=== PATIENT | female | born 1945 | race Caucasian/White ===

== ENCOUNTER 2019-03-27 10:13 | Observation (INO) ==
[2019-03-27 11:09] LABS: Hematocrit 22.8 % (35.3-44.9); Mean Corpuscular HGB Conc 30.7 g/dL (31.6-35.5); Mean Corpuscular Hemoglobin 28.5 pg (28.0-33.3); Mean Corpuscular Volume 92.7 fL (83.0-100.0); Mean Platelet Volume 8.8 fL (9.4-12.4); Platelet Count 532 K/mcL (140-400); Red Blood Count 2.46 M/mcL (3.82-4.97); Red Cell Distribution Width 15.3 % (11.5-14.5)
--- NOTE | 2019-03-27 11:21 | Emergency Department Note ---
Disposition Clinical Impression: Anemia requiring transfusions Disposition: Admitted As Inpatient Condition: Fair Referrals: Gema Guajardo, ZAIRA [Primary Care Provider] - Forms: ED Satisfaction Letter Time of Disposition: 14:49 General Adult HPI - General Chief complaint: ED GI Bleed Stated complaint: GI bleed Time Seen by Provider: 03/27/19 10:21 Nursing Notes Reviewed: Yes Vital Signs Reviewed: Yes - History of Present Illness HPI Narrative: Presents with anemia was sent for consideration of blood transfusion and a did review her records and yesterday had a hemoglobin of 7.4 and the patient is taki ng Plavix secondary to what she states is a carotid stent which was placed in the spring and she is also taking prednisone is now down to 15 mg a day and this is for giant cell arteritis and has had some dark stools but no blood seen in the stool. No nausea vomiting. Does have a full sensation but no specific abdominal pain. Social history: Stopped smoking 2 months ago. No alcohol Pain Scale: 1 - Related Data Home Medications Medication Instructions Recorded Confirmed Alendronate Sodium 70 mg PO MO 03/27/19 03/27/19 Aspirin [Adult Aspirin Regimen] 81 mg PO DAILY 03/27/19 03/27/19 Cetirizine HCl [24Hour Allergy] 10 mg PO DAILY PRN 03/27/19 03/27/19 Clopidogrel [Plavix] 75 mg PO DAILY 03/27/19 03/27/19 Multivit-Min/Iron/Folic/Lutein 1 tab PO DAILY 03/27/19 03/27/19 [Multivitamin Women 50 Plus Tab] Pantoprazole Sodium [Protonix] 40 mg PO DAILY 03/27/19 03/27/19 predniSONE [PredniSONE] 15 mg PO DAILY 03/27/19 03/27/19 Allergies Allergy/AdvReac Type Severity Reaction Status Date / Time acetaminophen [From Percocet] Allergy NAUSEA, Verified 03/27/19 13:35 BAD HEADACHE codeine Allergy NAUSEA, Verified 03/27/19 13:35 BAD HEADACHE oxycodone [From Percocet] Allergy NAUSEA, Verified 03/27/19 13:35 BAD HEADACHE Sulfa (Sulfonamide Allergy See Verified 03/27/19 13:35 Antibiotics) Comments All systems ED: reviewed and negative except as stated. Past Medical History - Past Medical History Medical history: Reports: no medical history Surgical history: Reports: other Psychiatric history: Reports: no psych history - Social History Smoking Status: Never smoker Smokeless Tobacco Status: No Alcohol use: Reports: none Drug use: Reports: none Physical Exam CONSTITUTIONAL: Alert and oriented X3, well-nourished, well appearing, in no apparent distress HEAD: Normocephalic; atraumatic. EYES: PERRL, no scleral icterus. NOSE: The nose is normal in appearance without rhinorrhea RESP: Normal chest excursion with respiration; breath sounds clear and equal bilaterally; no wheezes, rhonchi, or rales CARD: Regular rhythm, without murmurs, rub or gallop ABD: Non-distended; non-tender, soft,without rigidity, rebound or guarding SKIN: Normal for age and race; warm and dry; no apparent lesions Course Vital Signs Temperature 98.1 F 03/27/19 10:15 Pulse Rate 85 03/27/19 10:15 Respiratory Rate 14 03/27/19 10:15 Blood Pressure 166/76 03/27/19 10:15 O2 Sat by Pulse Oximetry 97 03/27/19 10:15 Temperature 98.4 F 03/27/19 14:30 Pulse Rate 72 03/27/19 14:30 Respiratory Rate 16 03/27/19 14:30 Blood Pressure 117/55 03/27/19 14:30 O2 Sat by Pulse Oximetry 99 03/27/19 14:30 Oxygen Delivery Oxygen Delivery Room Air Medical Decision Making - MDM Narrative Medical decision making narrative: rectal exam will be don for further evaluation. She is scheduled for endoscopy and colonoscopy with Dr. Hauser on Saturday, in 3 days. 1121 I did I did review the test results. I spoke with the hospitalist to ask for a CT scan and basic metabolic profile which have been done and I have reviewed the results which are both negative the patient will be admitted at this time. She is in the process of getting 2 units of packed red blood cells/blood is ordered. 1448 I also spoke earlier with Dr. Hauser who said that the patient actually has an appointment for evaluation on Saturday as opposed to having an appointment to actually have the EGD and colonoscopy performed on Saturday. He does not know this patient. I did turn in for a consult to him and he is in agreement and accepts. 1449 I did see the patient again is spoke with her and her son and she is currently being transfused and did inform them of the test results. 1530 - Medical Records Medical records reviewed: Yes I reviewed the patient's medical records. - Lab Data Lab results reviewed: Yes I reviewed the patient's lab results. Result diagrams: 03/27/19 10:54 03/27/19 10:54 Lab Results 03/27/19 03/27/19 03/27/19 Range/Units 10:54 10:54 10:54 WBC 6.6 (4.3-11.1) K/mcL RBC 2.46 L (3.82-4.97) M/mcL Hgb 7.0 L (11.5-15.4) g/dL Hct 22.8 L (35.3-44.9) % MCV 92.7 (83.0-100.0) fL MCH 28.5 (28.0-33.3) pg MCHC 30.7 L (31.6-35.5) g/dL RDW 15.3 H (11.5-14.5) % Plt Count 532 H (140-400) K/mcL MPV 8.8 L (9.4-12.4) fL Sodium 138 (136-145) mEq/L Potassium 3.5 (3.5-5.1) mEq/L Chloride 104 (98-107) mEq/L Carbon Dioxide 27 (23-29) mEq/L BUN 15 (8-23) mg/dL Creatinine 0.72 (0.60-1.20) mg/dL Est GFR ( Amer) > 60 (> 60) Est GFR (Non-Af Amer) > 60 (> 60) BUN/Creatinine Ratio 21 (6-26) Glucose 109 H (70-105) mg/dL Calculated Osmolality 287 (280-300) Calcium 9.2 (8.6-10.3) mg/dL Blood Type O POSITIVE Antibody Screen NEGATIVE Crossmatch See Detail - Radiology Data Radiology results reviewed: Yes I reviewed the patient's radiology results.
[2019-03-27 13:40] LABS: BUN/Creatinine Ratio 21 (6-26); Blood Urea Nitrogen 15 mg/dL (8-23); Calcium 9.2 mg/dL (8.6-10.3); Carbon Dioxide 27 mEq/L (23-29); Chloride 104 mEq/L (98-107); Glucose 109 mg/dL (70-105); Osmolality,Calculated 287 (280-300); Potassium 3.5 mEq/L (3.5-5.1); Sodium 138 mEq/L (136-145); eGFR For Non-African Americans > 60 (> 60)
--- NOTE | 2019-03-27 13:47 | AcuteCare Surgery Consult Note ---
<Angeles Butler N - Last Filed: 03/27/19 13:45> Date of Encounter: 03/27/19 Time of Encounter: 13:45 Assessment and Plan (1) Anemia Current Visit: Yes Status: Acute -73-year-old female with progressively worsening normocytic anemia since January 10 -During workup for her GCA, an ICA aneurysm was identified and patient underwent stent placement in January 2019 and started on aspirin and Plavix -Reports recent history of darker stools, but denies hematochezia, bright red blood per rectum, hematemesis, or abnormal uterine bleeding -Asymptomatic and hemodynamically stable, hemoglobin in the emergency department today was 7.0 -Concern for gastritis with bleeding ulcer due to history of prednisone and antiplatelet use -Patient will be transfused 2 units packed RBCs today -Plan to initiate bowel prep tomorrow in anticipation for EGD and colonoscopy the following day -Clear liquid diet for now, no red or purple dye Qualifiers: Qualified Code(s): D64.9 - Anemia, unspecified History of Present Illness Consult date: 03/27/19 History of present illness: Patient is a 73-year-old female with a past medical history of 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 Patient underwent right temporal artery biopsy on 12/18/18 with pathology findings supporting giant cell arteritis. At that time she was also diagnosed with a left ICA aneurysm measu ring 7 x 4 x 4 mm for which she underwent stenting at [facility] and was started on aspirin and Plavix. Patient was incidentally found to have progressively worsening normocytic anemia on outpatient follow-up labs. Yesterday her hemoglobin was found to be 7.4 which prompted her PCP to advise her to visit the emergency department today. Upon arrival, patient is hemodynamically stable and in no acute distress. Patient denies any symptoms from her anemia. She denies any abdominal pain, bright red blood per rectum, or hematemesis, but she does report darker stools recently. Past Med Surg Social Fam HX - Past Medical History Medical history: no medical history Psychiatric history: no psych history - Past Surgical History Surgical History: other Additional surgical history: D&C, T&A, - Social History Smoking Status: Never smoker Smokeless Tobacco Status: No Alcohol use: none Drug use: none Medications and Allergies Alendronate Sodium 70 mg PO MO 05/17/19 [History] Aspirin [Adult Aspirin Regimen] 81 mg PO DAILY 03/27/19 [History] Cetirizine HCl [24Hour Allergy] 10 mg PO DAILY PRN 03/27/19 [History] Clopidogrel [Plavix] 75 mg PO DAILY 03/27/19 [History] Multivit-Min/Iron/Folic/Lutein [Multivitamin Women 50 Plus Tab] 1 tab PO DAILY 03/27/19 [History] Pantoprazole Sodium [Protonix] 40 mg PO DAILY 03/27/19 [History] predniSONE [PredniSONE] 15 mg PO DAILY 03/27/19 [History] Allergy/AdvReac Type Severity Reaction Status Date / Time acetaminophen [From Percocet] Allergy NAUSEA, Verified 03/27/19 13:35 BAD HEADACHE codeine Allergy NAUSEA, Verified 03/27/19 13:35 BAD HEADACHE oxycodone [From Percocet] Allergy NAUSEA, Verified 03/27/19 13:35 BAD HEADACHE Sulfa (Sulfonamide Allergy See Verified 03/27/19 13:35 Antibiotics) Comments Review of Systems All systems PM: The remainder of the systems were reviewed and are negative - Constitutional no chills, no fever(s) - Cardiovascular no chest pain - Respiratory no dyspnea - Gastrointestinal abdominal pain (Occasional postprandial epigastric pain), no hematochezia, no nausea, no vomiting - Genitourinary Genitourinary: no abnormal vaginal bleeding General Surgery Exam Initial Vital Signs Temp Pulse Resp BP Pulse Ox 98.1 F 85 14 166/76 97 03/27/19 10:15 03/27/19 10:15 03/27/19 10:15 03/27/19 10:15 03/27/19 10:15 - General physical appearance well developed, well nourished - Eyes PERRL, normal ocular movement - ENT normal pinna, normal nares - Neck trachea midline, no venous distension - Respiratory normal expansion, normal respiratory effort, clear to auscultation - Cardiovascular Cardiovascular exam: Present: RRR. Absent: murmurs - Abdomen Abdomen general surgery: Present: bowel sounds present, soft, non tender - Integumentary Integumentary general surgery: Present: warm and dry - Musculoskeletal Present: normal posture - Psychiatric Psychiatric general surgery: Present: A&Ox3 Exam Initial Vital Signs Temp Pulse Resp BP Pulse Ox 98.1 F 85 14 166/76 97 03/27/19 10:15 03/27/19 10:15 03/27/19 10:15 03/27/19 10:15 03/27/19 10:15 Results - Labs 03/27/19 10:54 03/27/19 10:54 Abnormal lab results RBC 2.46 M/mcL (3.82-4.97) L 03/27/19 10:54 Hgb 7.0 g/dL (11.5-15.4) L 03/27/19 10:54 Hct 22.8 % (35.3-44.9) L 03/27/19 10:54 MCHC 30.7 g/dL (31.6-35.5) L 03/27/19 10:54 RDW 15.3 % (11.5-14.5) H 03/27/19 10:54 Plt Count 532 K/mcL (140-400) H 03/27/19 10:54 MPV 8.8 fL (9.4-12.4) L 03/27/19 10:54 Glucose 109 mg/dL (70-105) H 03/27/19 10:54 Crossmatch See Detail 03/27/19 10:54 Diabetes panel 03/27/19 Range/Units 10:54 Sodium 138 (136-145) mEq/L Potassium 3.5 (3.5-5.1) mEq/L Chloride 104 (98-107) mEq/L Carbon Dioxide 27 (23-29) mEq/L BUN 15 (8-23) mg/dL Creatinine 0.72 (0.60-1.20) mg/dL Glucose 109 H (70-105) mg/dL Calcium 9.2 (8.6-10.3) mg/dL Calcium panel 03/27/19 Range/Units 10:54 Calcium 9.2 (8.6-10.3) mg/dL Pituitary panel 03/27/19 Range/Units 10:54 Sodium 138 (136-145) mEq/L Potassium 3.5 (3.5-5.1) mEq/L Chloride 104 (98-107) mEq/L Carbon Dioxide 27 (23-29) mEq/L BUN 15 (8-23) mg/dL Creatinine 0.72 (0.60-1.20) mg/dL Glucose 109 H (70-105) mg/dL Calcium 9.2 (8.6-10.3) mg/dL Adrenal panel 03/27/19 Range/Units 10:54 Sodium 138 (136-145) mEq/L Potassium 3.5 (3.5-5.1) mEq/L Chloride 104 (98-107) mEq/L Carbon Dioxide 27 (23-29) mEq/L BUN 15 (8-23) mg/dL Creatinine 0.72 (0.60-1.20) mg/dL Glucose 109 H (70-105) mg/dL Calcium 9.2 (8.6-10.3) mg/dL All other labs normal. Consult Discharge Plan - Plan <Ismael Hauser - Last Filed: 03/27/19 17:57> Date of Encounter: 03/27/19 Review of Systems All systems PM: The remainder of the systems were reviewed and are negative General Surgery Exam Initial Vital Signs Temp Pulse Resp BP Pulse Ox 98.1 F 85 14 166/76 97 03/27/19 10:15 03/27/19 10:15 03/27/19 10:15 03/27/19 10:15 03/27/19 10:15 Exam Initial Vital Signs Temp Pulse Resp BP Pulse Ox 98.1 F 85 14 166/76 97 03/27/19 10:15 03/27/19 10:15 03/27/19 10:15 03/27/19 10:15 03/27/19 10:15 Results - Labs 03/27/19 10:54 03/27/19 10:54 Abnormal lab results RBC 2.46 M/mcL (3.82-4.97) L 03/27/19 10:54 Hgb 7.0 g/dL (11.5-15.4) L 03/27/19 10:54 Hct 22.8 % (35.3-44.9) L 03/27/19 10:54 MCHC 30.7 g/dL (31.6-35.5) L 03/27/19 10:54 RDW 15.3 % (11.5-14.5) H 03/27/19 10:54 Plt Count 532 K/mcL (140-400) H 03/27/19 10:54 MPV 8.8 fL (9.4-12.4) L 03/27/19 10:54 Glucose 109 mg/dL (70-105) H 03/27/19 10:54 Crossmatch See Detail 03/27/19 10:54 Diabetes panel 03/27/19 Range/Units 10:54 Sodium 138 (136-145) mEq/L Potassium 3.5 (3.5-5.1) mEq/L Chloride 104 (98-107) mEq/L Carbon Dioxide 27 (23-29) mEq/L BUN 15 (8-23) mg/dL Creatinine 0.72 (0.60-1.20) mg/dL Glucose 109 H (70-105) mg/dL Calcium 9.2 (8.6-10.3) mg/dL Calcium panel 03/27/19 Range/Units 10:54 Calcium 9.2 (8.6-10.3) mg/dL Pituitary panel 03/27/19 Range/Units 10:54 Sodium 138 (136-145) mEq/L Potassium 3.5 (3.5-5.1) mEq/L Chloride 104 (98-107) mEq/L Carbon Dioxide 27 (23-29) mEq/L BUN 15 (8-23) mg/dL Creatinine 0.72 (0.60-1.20) mg/dL Glucose 109 H (70-105) mg/dL Calcium 9.2 (8.6-10.3) mg/dL Adrenal panel 03/27/19 Range/Units 10:54 Sodium 138 (136-145) mEq/L Potassium 3.5 (3.5-5.1) mEq/L Chloride 104 (98-107) mEq/L Carbon Dioxide 27 (23-29) mEq/L BUN 15 (8-23) mg/dL Creatinine 0.72 (0.60-1.20) mg/dL Glucose 109 H (70-105) mg/dL Calcium 9.2 (8.6-10.3) mg/dL All other labs normal. - Attending Attestation I examined this patient and my medical decision-making was reviewed with the Resident Physician. I agree with the documented findings, disposition and treatment plan as described except to the extent set forth below. I reviewed the above assessment and evaluation with the resident and agree with the above plan. Patient with noted trending downward millimeters. She denies any abdominal pain and denies any nausea or vomiting. She did describe having some dark stools but no visualized blood in the stool. She is never had a colonoscopy. She is nontender to palpation on physical examination with positive bowel sounds. Her laboratory studies show a hemoglobin of 7.0 and also previous labs have shown low iron level. Given her iron deficiency anemia of unknown origin I do agree that an EGD and colonoscopy would be warranted, however, I would first want her to be transfused so that she can be more normovolemic prior to administering a bowel prep that would cause possible dehydration. Will follow along and see what her lab values are tomorrow prior to starting the bowel prep
[2019-03-27] MEDS ORDERED: 0.9 % Sodium Chloride 250 ML ONE ×2 (14:09→19:58)
--- NOTE | 2019-03-27 16:32 | Event Note ---
Date of Encounter: 03/27/19 Time of Encounter: 17:00 to serve as attending attestation pending completion of resident H&P document I examined this patient and my medical decision-making was reviewed with the Resident Physician Dr Luis. I agree with the documented findings, disposition and treatment plan as described except to the extent set forth below. Ms Baca is being observed for worsening chronic anemia present since january and requiring prbc transfusion. She has pmhx GCA, ICA aneurysm with stent placementMar2018 at [facility] on ASA + palvix, since january 2019 she has had anemia worsened to now hgb 7 (12 in december 2018). She was scheduled to see Dr Hauser outpt next week for scopes. Outpt hgb 7.4 yesterday and PCP referred to ER. no other medical hx surg hx: reviewed and non contributory, recent ICA stent as noted above, temporal artery bx 12/2018 fam hx: reviewed and NON CONTRIBUTORY social hx: non smoker, no etoh or drugs awake, very pleasant. no abd pain. vague aching pain in epigastrium earlier in week. no n/v/d. no melena or brbpr or hematochezia, though stool appears darker. no hemorrhoids. She admits to weeks of lightheadedness and general fatigue which has been worked up outpt by her established providers without identifiable cause other than her being on steroids and having anemia. No vaginal bleeding, hematuria, wounds, + nosebleed once a month ago. No easy bruising. cv-no cp, palpitations, syncope, orthopnea, le edema pulm-no sob, wheezing, cough, hemoptysis, pnd neuro-no focal weakness, numbness, tingling, vision changes, coto skin-no rash, bruising, color changes gen- alert, awake,appears stated age eyes- pupils equal round , no conjunctival pallor cv- reg rate and rhythm, normal s1,s2, no murmurs appreciated lungs- ctabl, no wheezing, rhonchi or crackles abd- soft, non tender, non distended, + bs neuro- AAOx3, CN grossly intact skin- warm dry no pallor Normocytic acute on chronic anemia Suspected GI blood loss anemia hgb 7, hemodynamically stable -surgery has seen in consultation and chano do egd and cscope 03/29, clear liquids, being bowel prep tomorrow -2 units prbcs and trend hgb - asa + plavix are to be continued at this time- I have discussed with vasc surg here (whom did not treat pt) for guideline recs regarding recently aneurysmal stent placement and typically this medication regimen should be continued unless absolutely critical not to -she is unsure of [facility] vas surgeons name -IV PPI BID Giant Cell arteritis on daily prednisone- cont prednisone 15 mg daily vte ppx scds only further diagnoses and plan as noted by resident
[2019-03-27] MEDS ORDERED: Naloxone 0.4 MG/ML INJ IVP PRN (16:39)
[2019-03-27] MEDS ORDERED: Loratadine 10 MG TABLET PO PRN (16:41)
--- NOTE | 2019-03-27 16:46 | Internal Med History&Physical ---
<Jaden Luis - Last Filed: 03/27/19 16:48> Date of Encounter: 03/27/19 Time of Encounter: 16:44 Internal Medicine - H&P: HPI Chief complaint: Anemia Admitted From: Home History of present illness: Ms. 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 Patient had undergone a right temporal artery biopsy on 12/18 with findings suggestive of GCA. She was also diagnosed with a left-sided ICA aneurysm and underwent stenting at [facility]. She was started on aspirin and Plavix. On outpatient follow- up labs, she was incidentally found to have a progressively worsening normocytic anemia. Yesterday, hemoglobin was 7.4. PCP advised patient to present to the emergency department. Patient was initially supposed to establish with surgery on Saturday. On arrival to the emergency department, patients vital signs were as follows: Temperature 98.1, pulse 85, respiratory rate 14, blood pressure 166/76, O2 saturation 97%. Laboratory analysis demonstrated the following: Hemoglobin 7.0, MCV 92.7, and glucose 109. Surgery was consulted; plan is to initiate bowel prep tomorrow in anticipation for an EGD and colonoscopy on Saturday. Patient is placed on a clear liquid diet. She was seen and examined at bedside. She is currently receiving 1 unit of packed red blood cells. She states that she is feeling well, and has been completely asymptomatic. She endorses mild, intermittent abdominal discomfort over the past week. Also reports that her stools have appeared slightly darker in color over the past few days, but denies black stools. Patient does take aspirin and Plavix, and she states that she has been on her medications faithfully. She states that she was also told that she cannot stop her Plavix under any circumstance until her course is complete. She currently denies constipation, diarrhea, blood per rectum, hematemesis, abdominal pain, chest pain, fever, chills, nausea, or vomiting. No complaints at this time. Past Med Surg Social Fam HX - Past Medical History Medical history: no medical history Psychiatric history: no psych history - Past Surgical History Surgical History: other Additional surgical history: D&C, T&A, - Social History Smoking Status: Never smoker Smokeless Tobacco Status: No Alcohol use: none Drug use: none Internal Medicine - H&P: Meds Alendronate Sodium 70 mg PO MO 03/27/19 [History] Aspirin [Adult Aspirin Regimen] 81 mg PO DAILY 03/27/19 [History] Cetirizine HCl [24Hour Allergy] 10 mg PO DAILY PRN 03/27/19 [History] Clopidogrel [Plavix] 75 mg PO DAILY 03/27/19 [History] Multivit-Min/Iron/Folic/Lutein [Multivitamin Women 50 Plus Tab] 1 tab PO DAILY 03/27/19 [History] Pantoprazole Sodium [Protonix] 40 mg PO DAILY 03/27/19 [History] predniSONE [PredniSONE] 15 mg PO DAILY 03/27/19 [History] Allergy/AdvReac Type Severity Reaction Status Date / Time acetaminophen [From Percocet] Allergy NAUSEA, Verified 03/27/19 13:35 BAD HEADACHE codeine Allergy NAUSEA, Verified 03/27/19 13:35 BAD HEADACHE oxycodone [From Percocet] Allergy NAUSEA, Verified 03/27/19 13:35 BAD HEADACHE Sulfa (Sulfonamide Allergy See Verified 03/27/19 13:35 Antibiotics) Comments All Systems PM: A 10-system review of systems was performed and is negative for pertinent findings except as documented above in the HPI. - Constitutional Constitutional: no chills, no fever(s), no night sweats - Cardiovascular Cardiovascular ROS IM: no chest pain, no diaphoresis, no dyspnea, no lightheadedness, no palpitations, no syncope - Respiratory Respiratory: no cough, no dyspnea, no wheezing, no excessive phlegm production - Gastrointestinal Gastrointestinal: no abdominal pain, no diarrhea, no hematemesis, no hematochezia, no melena, no nausea, no vomiting - Genitourinary Genitourinary: no dysuria, no flank pain, no hematuria - Constitutional Vitals: Temp Pulse Resp BP Pulse Ox 98.0 F 74 17 145/68 100 03/27/19 16:41 03/27/19 16:41 03/27/19 16:41 03/27/19 16:41 03/27/19 16:41 Exam: General: A&O X3, conversant, no acute distress Head: atraumatic, normocephalic Eye: PERRL, EOMI, conjuntiva pink, sclera anicteric Neck: Supple, trachea midline; No lymphadenopathy Respiratory: CTAB. No accessory muscle use, wheezes, rales, or rhonchi Cardiovascular: RRR, +S1, +S2; no murmurs, rubs, gallops Abdomen: Soft, nontender Extremities: warm, radial pulses palpable and symmetrical Psychiatric: Normal affect, normal mood Skin: Dry, intact Internal Med - H&P Results - Labs CBC & Chem 7: 03/27/19 10:54 03/27/19 10:54 Labs: Short CBC 03/27/19 Range/Units 10:54 WBC 6.6 (4.3-11.1) K/mcL Hgb 7.0 L (11.5-15.4) g/dL Hct 22.8 L (35.3-44.9) % Plt Count 532 H (140-400) K/mcL BMP 03/27/19 10:54 Sodium 138 Potassium 3.5 Chloride 104 Carbon Dioxide 27 BUN 15 Creatinine 0.72 Glucose 109 H Calcium 9.2 - Impressions ITS Impressions Abdomen/Pelvis CT 03/27/19 13:08 IMPRESSION: 1. Mild constipation, otherwise, no acute intra-abdominal abnormality to account for the patient's symptoms. 2. Normal appendix. 3. Severe diverticulosis. 4. Severe atherosclerosis. D/ / 03/27/2019 14:10:42 Danielle Kat MD / Concha Cruz Interpreting Provider: Danielle Kat MD - Assessment and Plan (1) Anemia Current Visit: Yes Status: Acute Assessment and plan: - Patient presented at the request of her PCP; her hemoglobin was found to be 7.4 in the outpatient setting - On arrival to the emergency department, patients hemoglobin is 7.0, with an MCV of 92.7 - She is currently hemodynamically stable and is in no distress at this time - Patient denies having any bright red blood per rectum or tarry black stools, but does state that she has had dark colored stools for the past few days - Denies use of iron supplements - She denies having any previous history of GI bleeding Plan: - 2 units of packed red blood cells have been ordered; patient is currently receiving 1 unit - Clear liquid diet - Surgery is currently following; initiate bowel prep tomorrow with plan for EGD and colonoscopy on Saturday - Will trend H/H every 6 Qualifiers: Qualified Code(s): D64.9 - Anemia, unspecified (2) Carotid artery aneurysm Current Visit: Yes Status: Acute Assessment and plan: - Was diagnosed with an ICA aneurysm measuring 7 x 4 x 4 millimeters; stent was placed - Patient was started on aspirin and Plavix; patient states that she will be on Plavix for a few more months - She notes that she was told that she cannot stop her Plavix under any c ircumstance - Will resume aspirin and Plavix for the time being (3) Giant cell arteritis Current Visit: Yes Status: Acute Assessment and plan: - Underwent temporal artery biopsy on 12/18/18: Pathology findings supported GCA - Currently taking 15 mg of prednisone per day (4) GERD (gastroesophageal reflux disease) Current Visit: Yes Status: Acute Assessment and plan: - Resume PPI Qualifiers: Qualified Code(s): K21.9 - Gastro-esophageal reflux disease without esophagitis - Time Spent With Patient Total time spent is greater than 50% in coordination of care (as documented) at patient's floor/unit and/or counseling patient: <Otilia Hawkins - Last Filed: 03/27/19 17:41> Date of Encounter: 03/27/19 Internal Medicine - H&P: HPI History of present illness: Ms. Baca is a 73 year old female All Systems PM: A 10-system review of systems was performed and is negative for pertinent findings except as documented above in the HPI. - Constitutional Vitals: Temp Pulse Resp BP Pulse Ox 98.0 F 74 17 145/68 100 03/27/19 16:41 03/27/19 16:41 03/27/19 16:41 03/27/19 16:41 03/27/19 16:41 Internal Med - H&P Results - Labs CBC & Chem 7: 03/27/19 10:54 03/27/19 10:54 Labs: Short CBC 03/27/19 Range/Units 10:54 WBC 6.6 (4.3-11.1) K/mcL Hgb 7.0 L (11.5-15.4) g/dL Hct 22.8 L (35.3-44.9) % Plt Count 532 H (140-400) K/mcL BMP 03/27/19 10:54 Sodium 138 Potassium 3.5 Chloride 104 Carbon Dioxide 27 BUN 15 Creatinine 0.72 Glucose 109 H Calcium 9.2 - Impressions ITS Impressions Abdomen/Pelvis CT 03/27/19 13:08 IMPRESSION: 1. Mild constipation, otherwise, no acute intra-abdominal abnormality to account for the patient's symptoms. 2. Normal appendix. 3. Severe diverticulosis. 4. Severe atherosclerosis. D/ / 03/27/2019 14:10:42 Danielle Kat MD / Concha Cruz Interpreting Provider: Danielle Kat MD - Time Spent With Patient Total time spent is greater than 50% in coordination of care (as documented) at patient's floor/unit and/or counseling patient: - Attending Attestation I examined this patient and my medical decision-making was reviewed with the Resident Physician Dr Luis. I agree with the documented findings, disposition and treatment plan as described except to the extent set forth below. Ms Baca is being observed for worsening chronic anemia present since january and requiring prbc transfusion. She has pmhx GCA, ICA aneurysm with stent placementMar2018 at [facility] on ASA + palvix, since january 2019 she has had anemia worsened to now hgb 7 (12 in december 2018). She was scheduled to see Dr Murtaza pearce next week for scopes. Outpt hgb 7.4 yesterday and PCP referred to ER. no other medical hx surg hx: reviewed and non contributory, recent ICA stent as noted above, temporal artery bx 12/2018 fam hx: reviewed and NON CONTRIBUTORY social hx: non smoker, no etoh or drugs awake, very pleasant. no abd pain. vague aching pain in epigastrium earlier in week. no n/v/d. no melena or brbpr or hematochezia, though stool appears darker. no hemorrhoids. She admits to weeks of lightheadedness and general fatigue which has been worked up outpt by her established providers without identifiable cause other than her being on steroids and having anemia. No vaginal bleeding, hematuria, wounds, + nosebleed once a month ago. No easy bruising. cv-no cp, palpitations, syncope, orthopnea, le edema pulm-no sob, wheezing, cough, hemoptysis, pnd neuro-no focal weakness, numbness, tingling, vision changes, coto skin-no rash, bruising, color changes gen- alert, awake,appears stated age eyes- pupils equal round , no conjunctival pallor cv- reg rate and rhythm, normal s1,s2, no murmurs appreciated lungs- ctabl, no wheezing, rhonchi or crackles abd- soft, non tender, non distended, + bs neuro- AAOx3, CN grossly intact skin- warm dry no pallor Normocytic acute on chronic anemia Suspected GI blood loss anemia hgb 7, hemodynamically stable -surgery has seen in consultation and chano do egd and cscope 03/29, clear liquids, being bowel prep tomorrow -2 units prbcs and trend hgb - asa + plavix are to be continued at this time- I have discussed with vasc surg here (whom did not treat pt) for guideline recs regarding recently aneurysmal stent placement and typically this medication regimen should be continued unless absolutely critical not to -she is unsure of [facility] vasc surgeons name -IV PPI BID Giant Cell arteritis on daily prednisone- cont prednisone 15 mg daily vte ppx scds only further diagnoses and plan as noted by resident
[2019-03-27] MEDS: Pantoprazole 40 MG VIAL IVP SCH (18:41)
[2019-03-28 00:57] LABS: Hematocrit 29.5 % (35.3-44.9)
[2019-03-28 00:58] LABS: Basophils % 0.6 %; Eosinophils # 0.1 K/mcL (0.0-0.6); Hemoglobin 9.5 g/dL (11.5-15.4); Immature Granulocytes % 0.3 % (0-4); Lymphocytes # 3.5 K/mcL (0.6-4.6); Lymphocytes % 50.7 %; Mean Corpuscular HGB Conc 31.7 g/dL (31.6-35.5); Mean Corpuscular Hemoglobin 27.9 pg (28.0-33.3); Mean Platelet Volume 8.8 fL (9.4-12.4); Monocytes # 0.5 K/mcL (0.0-1.3); Monocytes % 7.8 %; Neutrophils # 2.7 K/mcL (1.6-8.9); Platelet Count 454 K/mcL (140-400); Red Blood Count 3.41 M/mcL (3.82-4.97); Red Cell Distribution Width 15.9 % (11.5-14.5); Segmented Neutrophils % 39.6 %
[2019-03-28 01:06] LABS: INR 0.9; Prothrombin Time 10.6 Seconds (9.4-12.1)
[2019-03-28 01:15] LABS: BUN/Creatinine Ratio 18 (6-26); Blood Urea Nitrogen 10 mg/dL (8-23); Calcium 8.1 mg/dL (8.6-10.3); Carbon Dioxide 25 mEq/L (23-29); Chloride 109 mEq/L (98-107); Chol/HDL Ratio 2.4 (0-4.9); Cholesterol 171 mg/dL (< 200); Glucose 85 mg/dL (70-105); HDL Cholesterol 72 mg/dL (40-59); LDL Cholesterol,Calculated 71 mg/dL (0-99); Osmolality,Calculated 286 (280-300); Potassium 3.6 mEq/L (3.5-5.1); Sodium 139 mEq/L (136-145); Triglycerides 139 mg/dL (< 150); eGFR For Non-African Americans > 60 (> 60)
[2019-03-28] MEDS: Pantoprazole 40 MG VIAL IVP SCH ×2 (05:40→17:28)
--- NOTE | 2019-03-28 07:52 | Internal Med Progress Note ---
<Otilia Hawkins - Last Filed: 03/28/19 12:38> Hospitalist Progress Note - Encounter Date of Encounter: 03/28/19 - Exam Vitals: Temp Pulse Resp BP Pulse Ox 97.9 F 65 18 138/72 98 03/28/19 10:41 03/28/19 10:41 03/28/19 10:41 03/28/19 10:41 03/28/19 10:41 - Time Spent with Patient Total time spent is greater than 50% in coordination of care (as documented) at patient's floor/unit and/or counseling patient: Internal Medicine: Result - Labs CBC & Chem 7: 03/28/19 00:38 03/28/19 00:38 Labs: Short CBC 03/28/19 03/28/19 Range/Units 00:38 00:38 WBC 6.9 (4.3-11.1) K/mcL Hgb 9.5 L 9.5 L D (11.5-15.4) g/dL Hct 29.5 L 30.0 L (35.3-44.9) % Plt Count 454 H (140-400) K/mcL Neutrophils # 2.7 (1.6-8.9) K/mcL BMP 03/27/19 03/28/19 10:54 00:38 Sodium 138 139 Potassium 3.5 3.6 Chloride 104 109 H Carbon Dioxide 27 25 BUN 15 10 Creatinine 0.72 0.57 L Glucose 109 H 85 Calcium 9.2 8.1 L - ABG Interpretation ABG results: PT/INR, D-dimer PT 10.6 Seconds (9.4-12.1) 03/28/19 00:38 - Impressions Impressions Abdomen/Pelvis CT 03/27/19 13:08 IMPRESSION: 1. Mild constipation, otherwise, no acute intra-abdominal abnormality to account for the patient's symptoms. 2. Normal appendix. 3. Severe diverticulosis. 4. Severe atherosclerosis. D/ / 03/27/2019 14:10:42 Danielle Kat MD / Concha Cruz Interpreting Provider: Danielle Kat MD Consult Discharge Plan - Plan Referrals: Gema Guajardo, [employer] [Primary Care Provider] - - Attending Attestation I examined this patient and my medical decision-making was reviewed with the Resident Physician Dr Le. I agree with the documented findings, disposition and treatment plan as described except to the extent set forth below. Ms Baca is being observed for worsening chronic anemia and requiring prbc transfusion. awake, no sob, fatigue, presyncope or cp.. no abd pain overnight or today. begins bowel prep tonight for scopes in am gen- alert, awake,appears stated age eyes- pupils equal round , no conjunctival pallor cv- reg rate and rhythm, normal s1,s2, lungs- ctabl, normal resp effort on room air abd- soft, non tender, non distended, + bs neuro- AAOx3 skin- warm dry no pallor Normocytic acute on chronic anemia Suspected GI blood loss anemia hemodynamically stable -surgery to do egd and cscope 03/29, clear liquids, being bowel prep today -2 units prbcs 03/27 with appropriate response - asa + plavix are to be continued at this time- I have discussed with vasc surg here (whom did not treat pt) for guideline recs regarding recently aneurysmal stent placement and typically this medication regimen should be continued unless absolutely critical not to -she is unsure of [facility] vasc surgeons name -IV PPI BID Giant Cell arteritis- cont prednisone 15 mg daily further diagnoses and plan as noted by resident <Dom Le - Last Filed: 03/28/19 13:29> Hospitalist Progress Note - Encounter Date of Encounter: 03/28/19 Time of Encounter: 13:22 - Subjective Interval History: Patient was seen and examined at bedside this morning. She reports that she is doing very well at this time with no complaints or concerns. She presented with dizziness and lightheadedness and was found to have a hemoglobin of 7.0. Plan is EGD/colonoscopy tomorrow. She is starting her preparation now. She did have one episode of lightheadedness while interview was taking place, this is since resolved. - Exam Vitals: Temp Pulse Resp BP Pulse Ox 98.1 F 70 18 118/60 98 03/28/19 06:37 03/28/19 06:37 03/28/19 06:37 03/28/19 06:37 03/28/19 06:37 Exam: Gen.: Vitals noted. No acute distress. AAOx3, resting comfortably in bed. Very pleasant HEENT: PERRL/EOMI, oropharynx clear, Normocephalic, atraumatic, MMM Cardiac: RRR, no murmur, +S1/S2, No BLE edema Pulmonary: CTA bilaterally, no wheezes, rales or rhonchi, equal chest expansion, unlabored breathing Abdomen: soft, nontender, BS noted, no guarding, no palpable HSM Skin: warm and dry, no visible lesions. MSK: ROM intact, no joint swelling noted, gait no assessed while in bed. Non tender calf or clubbing Neuro: A&Ox3, moves all extremities, no focal deficits, sensation intact Psych: Appropriate mood and behavior, AOx3 - Assessment and Plan (1) Anemia Current Visit: Yes Status: Acute Assessment and Plan: - This appears to be an acute on chronic problem for the patient - She is denying any symptoms of hematochezia, melena, hematemesis - Home medications include aspirin, Plavix, prednisone for described conditions below - Hemoglobin on presentation of 7.0 which has been slowly declining since December 2018 - Hemodynamically stable - Baseline per patient is 11-12 - Suspected source is upper GI bleed with gastritis and/or gastric ulcer General surgery has been consulted. Plan for EGD/colonoscopy on 03/29. Patient is currently beginning bowel prep regimen. Status post 2 units of packed red blood cells on admission. Most recent hemoglobin of 9.5 this morning Plan - Continue bowel prep, EGD/colonoscopy per general surgery - Clear liquid diet today - Nothing by mouth midnight - Protonix IV twice a day - Continue monitor and transfuse as necessary (2) GI bleed Current Visit: Yes Status: Suspected Assessment and Plan: As above (3) Carotid artery aneurysm Current Visit: Yes Status: Chronic Assessment and Plan: Per patient, she did receive a stent to the left carotid artery Home medications include aspirin, Plavix Was diagnosed with an ICA aneurysm measuring 7 x 4 x 4 millimeters; stent was placed We did discuss this with vascular surgery and they recommend continuing these medications even in the setting of suspected bleed (4) Giant cell arteritis Current Visit: Yes Status: Chronic Assessment and Plan: Per patient history Patient is asymptomatic Continue home prednisone (5) GERD (gastroesophageal reflux disease) Current Visit: Yes Status: Acute Assessment and Plan: Asymptomatic, continue home medication of PPI. We will convert to IV in the setting of suspected GI bleed (6) DVT prophylaxis Current Visit: Yes Status: Acute Assessment and Plan: SCDs in the setting of anemia - Time Spent with Patient Total time spent is greater than 50% in coordination of care (as documented) at patient's floor/unit and/or counseling patient: Internal Medicine: Result - Labs CBC & Chem 7: 03/28/19 00:38 03/28/19 00:38 Labs: Short CBC 03/27/19 03/28/19 03/28/19 Range/Units 10:54 00:38 00:38 WBC 6.6 6.9 (4.3-11.1) K/mcL Hgb 7.0 L 9.5 L 9.5 L D (11.5-15.4) g/dL Hct 22.8 L 29.5 L 30.0 L (35.3-44.9) % Plt Count 532 H 454 H (140-400) K/mcL Neutrophils # 2.7 (1.6-8.9) K/mcL BMP 03/27/19 03/28/19 10:54 00:38 Sodium 138 139 Potassium 3.5 3.6 Chloride 104 109 H Carbon Dioxide 27 25 BUN 15 10 Creatinine 0.72 0.57 L Glucose 109 H 85 Calcium 9.2 8.1 L - ABG Interpretation ABG results: PT/INR, D-dimer PT 10.6 Seconds (9.4-12.1) 03/28/19 00:38 - Impressions Impressions Abdomen/Pelvis CT 03/27/19 13:08 IMPRESSION: 1. Mild constipation, otherwise, no acute intra-abdominal abnormality to account for the patient's symptoms. 2. Normal appendix. 3. Severe diverticulosis. 4. Severe atherosclerosis. D/ 03/27/2019 14:10:42 Danielle Kat MD / Concha Cruz Interpreting Provider: Danielle Kat MD <Dom Le - Last Filed: 03/28/19 13:29> (1) Anemia Qualifiers: Anemia type: iron deficiency Iron deficiency anemia type: chronic blood loss Qualified Code(s): D50.0 - Iron deficiency anemia secondary to blood loss (chronic) (2) GI bleed Qualifiers: GI bleed type/associated pathology: gastric ulcer Qualified Code(s): K25.4 - Chronic or unspecified gastric ulcer with hemorrhage (5) GERD (gastroesophageal reflux disease) Qualifiers: Qualified Code(s): K21.9 - Gastro-esophageal reflux disease without esophagitis
[2019-03-28] MEDS ORDERED: predniSONE 5 MG TABLET PO SCH (09:00)
[2019-03-28] MEDS ORDERED: Aspirin Enteric Coated 81 MG Tablet PO SCH (09:00)
[2019-03-28] MEDS ORDERED: Multivit/Ca/Min/Fe/FA 1 TAB TABLET PO SCH (09:00)
--- NOTE | 2019-03-28 12:14 | AcuteCareSurgery Progress Note ---
<Angeles Butler N - Last Filed: 03/28/19 12:12> Date of Encounter: 03/28/19 Time of Encounter: 10:00 - Assessment and Plan (1) Anemia Current Visit: Yes Status: Acute -73-year-old female admitted to the hospital with normocytic anemia with hemogl obin of 7.0 -Transfuse 2 units yesterday with good response, hemoglobin today is 9.5 -Plan to initiate bowel prep today in anticipation for EGD and colonoscopy tomorrow -Clear liquid diet without red or purple dye, nothing by mouth at midnight -We will reevaluate in the morning to assure the bowels are clear Qualifiers: Qualified Code(s): D64.9 - Anemia, unspecified Subjective Narrative: Patient seen and examined at bedside this morning. Denies any hematemesis, hematochezia, or melena overnight. No abdominal pain. Had small bowel movement this morning. Transfuse 2 units yesterday and hemoglobin is up to 9.5 today. Objective Vital Signs - Last 8 Hours Temp Pulse Resp BP Pulse Ox 03/28/19 10:41 97.9 F 65 18 138/72 98 03/28/19 06:37 98.1 F 70 18 118/60 98 03/28/19 04:19 98.1 F 65 16 142/68 98 Intake and Output 03/27/19 03/28/19 03/28/19 23:59 07:59 15:59 Intake Total 432 / 782 750 / 750 0 / 750 Balance 432 / 782 750 / 750 0 / 750 Intake: IV Fluids 62 / 62 0.9 % Sodium Chloride 250 ML @ 62 / 62 0 mls/hr .ROUTE .STK-MED ONE Rx #:[id number] Oral 750 / 750 0 / 750 Blood Product 370 / 720 Rbcs Leuko Poor As-1 Unit 370 / 370 [id number] Other: # Voids 1 1 - General physical appearance well developed, well nourished - Eyes PERRL, normal ocular movement - ENT normal pinna, normal nares - Neck Neck exam: trachea midline, no venous distension - Respiratory normal expansion, normal respiratory effort - Cardiovascular Cardiovascular exam: Present: RRR - Abdomen Abdomen: Present: bowel sounds present, soft, non tender - Integumentary no rash - Musculoskeletal normal posture - Labs 03/28/19 00:38 03/28/19 00:38 Diabetes panel 03/27/19 03/28/19 Range/Units 10:54 00:38 Sodium 138 139 (136-145) mEq/L Potassium 3.5 3.6 (3.5-5.1) mEq/L Chloride 104 109 H (98-107) mEq/L Carbon Dioxide 27 25 (23-29) mEq/L BUN 15 10 (8-23) mg/dL Creatinine 0.72 0.57 L (0.60-1.20) mg/dL Glucose 109 H 85 (70-105) mg/dL Calcium 9.2 8.1 L (8.6-10.3) mg/dL Triglycerides 139 (< 150) mg/dL HDL Cholesterol 72 H (40-59) mg/dL Calcium panel 03/27/19 03/28/19 Range/Units 10:54 00:38 Calcium 9.2 8.1 L (8.6-10.3) mg/dL Pituitary panel 03/27/19 03/28/19 Range/Units 10:54 00:38 Sodium 138 139 (136-145) mEq/L Potassium 3.5 3.6 (3.5-5.1) mEq/L Chloride 104 109 H (98-107) mEq/L Carbon Dioxide 27 25 (23-29) mEq/L BUN 15 10 (8-23) mg/dL Creatinine 0.72 0.57 L (0.60-1.20) mg/dL Glucose 109 H 85 (70-105) mg/dL Calcium 9.2 8.1 L (8.6-10.3) mg/dL Adrenal panel 03/27/19 03/28/19 Range/Units 10:54 00:38 Sodium 138 139 (136-145) mEq/L Potassium 3.5 3.6 (3.5-5.1) mEq/L Chloride 104 109 H (98-107) mEq/L Carbon Dioxide 27 25 (23-29) mEq/L BUN 15 10 (8-23) mg/dL Creatinine 0.72 0.57 L (0.60-1.20) mg/dL Glucose 109 H 85 (70-105) mg/dL Calcium 9.2 8.1 L (8.6-10.3) mg/dL Consult Discharge Plan - Plan Referrals: Gema Guajardo, [employer] [Primary Care Provider] - <Ismael Hauser - Last Filed: 03/29/19 06:29> Date of Encounter: 03/28/19 Objective Vital Signs - Last 8 Hours Temp Pulse Resp BP Pulse Ox 03/29/19 03:20 97.7 F 67 14 118/63 96 Intake and Output 03/28/19 03/28/19 03/29/19 15:59 23:59 07:59 Intake Total 1920 / 5040 2370 / 5040 0 / 0 Balance 1920 / 5040 2370 / 5040 0 / 0 Intake: Oral 1920 / 5040 2370 / 5040 0 / 0 Other: Stool Size Moderate Small Small Stool Consistency liquid liquid liquid Stool Characteristics Normal for Patient Normal for Patient Stool Color Brown Brown Brown # Voids 1 1 1 # Bowel Movements 1 1 1 Weight 70.7 kg Blood Glucose* 104 Patient Weight 03/29/19 23:59 Weight 70.7 kg - Labs 03/29/19 04:10 03/28/19 00:38 - Attending Attestation I examined this patient and my medical decision-making was reviewed with the Resident Physician. I agree with the documented findings, disposition and treatment plan as described except to the extent set forth below. Review the above assessment and evaluation and agree with the above plan. Patient's hemoglobin increased to 9.5 after 2 units of packed red blood cell. Patient denies any abdominal pain or nausea or vomiting. No pain to palpation. We will proceed with a bowel prep today with the intention of planning a an EGD and colonoscopy tomorrow.
[2019-03-29 04:44] LABS: Basophils % 0.4 %; Eosinophils # 0.1 K/mcL (0.0-0.6); Hematocrit 32.3 % (35.3-44.9); Hemoglobin 10.4 g/dL (11.5-15.4); Immature Granulocytes % 0.1 % (0-4); Lymphocytes # 3.8 K/mcL (0.6-4.6); Lymphocytes % 53.4 %; Mean Corpuscular HGB Conc 32.2 g/dL (31.6-35.5); Mean Corpuscular Hemoglobin 28.3 pg (28.0-33.3); Mean Platelet Volume 8.6 fL (9.4-12.4); Monocytes # 0.7 K/mcL (0.0-1.3); Monocytes % 9.1 %; Neutrophils # 2.6 K/mcL (1.6-8.9); Platelet Count 489 K/mcL (140-400); Red Blood Count 3.67 M/mcL (3.82-4.97); Red Cell Distribution Width 15.9 % (11.5-14.5)
[2019-03-29] MEDS: Pantoprazole 40 MG VIAL IVP SCH (05:45)
--- NOTE | 2019-03-29 08:08 | Internal Med Progress Note ---
Hospitalist Progress Note - Encounter Date of Encounter: 03/29/19 - Exam Vitals: Temp Pulse Resp BP Pulse Ox 97.7 F 63 16 120/65 98 03/29/19 06:39 03/29/19 06:39 03/29/19 06:39 03/29/19 06:39 03/29/19 06:39 - Time Spent with Patient Total time spent is greater than 50% in coordination of care (as documented) at patient's floor/unit and/or counseling patient: Internal Medicine: Result - Labs CBC & Chem 7: 03/29/19 04:10 03/28/19 00:38 Labs: Short CBC 03/29/19 Range/Units 04:10 WBC 7.2 (4.3-11.1) K/mcL Hgb 10.4 L (11.5-15.4) g/dL Hct 32.3 L (35.3-44.9) % Plt Count 489 H (140-400) K/mcL Neutrophils # 2.6 (1.6-8.9) K/mcL - ABG Interpretation ABG results: PT/INR, D-dimer PT 10.6 Seconds (9.4-12.1) 03/28/19 00:38 Consult Discharge Plan - Plan Referrals: Gema Guajardo, SECURITY SERGEANT [Primary Care Provider] -
[2019-03-29] MEDS ORDERED: Ringers Solution, Lactated 1,000 ML IVC SCH ×2 (08:30→09:42)
[2019-03-29] MEDS ORDERED: Propofol 500 MG/50 ML INFUS..BTL ONE (08:37)
--- NOTE | 2019-03-29 08:39 | Anesthesia Evaluation PreOp ---
Date of Encounter: 03/29/19 Time of Encounter: 08:36 - Past History Planned Operation: EGD/colonoscopy (bleeding, anemia) Pulmonary History: Former smoker [employer] History: Other (Recent left ICA stent - so she still requires ASA/Plavix in setting of GI bleed) Other Medical History: Bleeding, Other (Hx presumed GCA - on taping dose of prednisone since ) Anesthesia History: No Prior Anesthetic Complications Alcohol Use: none Drug use: none Medications and Allergies Alendronate Sodium 70 mg PO MO 03/27/19 [History] Aspirin [Adult Aspirin Regimen] 81 mg PO DAILY 03/27/19 [History] Cetirizine HCl [24Hour Allergy] 10 mg PO DAILY PRN 03/27/19 [History] Clopidogrel [Plavix] 75 mg PO DAILY 03/27/19 [History] Multivit-Min/Iron/Folic/Lutein [Multivitamin Women 50 Plus Tab] 1 tab PO DAILY 03/27/19 [History] Pantoprazole Sodium [Protonix] 40 mg PO DAILY 03/27/19 [History] predniSONE [PredniSONE] 15 mg PO DAILY 03/27/19 [History] Allergy/AdvReac Type Severity Reaction Status Date / Time acetaminophen [From Percocet] Allergy NAUSEA, Verified 03/27/19 13:35 BAD HEADACHE codeine Allergy NAUSEA, Verified 03/27/19 13:35 BAD HEADACHE oxycodone [From Percocet] Allergy NAUSEA, Verified 03/27/19 13:35 BAD HEADACHE Sulfa (Sulfonamide Allergy See Verified 03/27/19 13:35 Antibiotics) Comments - Meds/Allergy Pre-op Review Medications Reviewed: Yes Allergies Reviewed: Yes Beta Blockers on Current Med List: No Anesthesia Results - Labs 03/29/19 04:10 03/28/19 00:38 - Imaging EKG: report reviewed, image reviewed (SR) Additional studies: TTE: Impressions: LVEF 60-65%. Normal LV chamber size, wall thickness and function. Mild left ventricular diastolic dysfunction. Normal right ventricular structure and function. No evidence of pulmonary hypertension. No significant valvular dysfunction. TTE: Impressions: LVEF 60-65%. Normal LV chamber size, wall thickness and function. Mild left ventricular diastolic dysfunction. Normal right ventricular structure and function. No evidence of pulmonary hypertension. No significant valvular dysfunction. Anesthesia Exam Last Vital Signs Temp 97.7 F 03/29/19 08:28 Pulse 63 03/29/19 08:28 Resp 16 03/29/19 08:28 BP 116/69 03/29/19 08:28 Pulse Ox 98 03/29/19 08:28 Weight: 71 kg NPO (# of Hours): > 8 hrs - HEENT Pupil (Motor): Pupils equal, EOMI Mallampati: III Teeth: Poor dentition Oral Opening: Greater than 3 - [employer] LOC: Oriented - Cardiac Rhythm: Regular Murmur: None - Pulmonary Breath Sounds: bilateral Clear Respiratory Effort: Symmetrical Anesthesia Assess/Plan ASA Score: 3 Level of consciousness: Cooperative Anesthetic Plan: MAC Monitoring Plan: Standard Monitors Recovery Plan: PACU
[2019-03-29] MEDS ORDERED: Simethicone 40 MG/0.6 ML MLS IR ONE (08:48)
[2019-03-29] MEDS ORDERED: Lidocaine -MPF 2% 2 ML VIAL ONE (08:57)
[2019-03-29] MEDS ORDERED: 0.9 % Sodium Chloride 1,000 ML IVC SCH ×2 (09:00→09:42)
[2019-03-29] MEDS ORDERED: EPHEDrine 50 MG/ML VIAL ONE (09:20)
--- NOTE | 2019-03-29 09:25 | Event Note ---
Date of Encounter: 03/29/19 Time of Encounter: 09:23 EGD performed: Irregular Z line and biopsies obtained. Some abnormal mucosa within the middle third portion of the esophagus with texture change. Biopsies obtained. There was also evidence of a small hiatal hernia. In the stomach there is granular appearing mucosa of the fundus and antrum and this was also biopsied with a close obtained. The duodenum was normal. In the colon there is a moderate-sized nonbleeding internal hemorrhoids. There are multiple small and large size diverticulum in the sigmoid and descending colon. 4 polyps approximately 3-8 mm in size were seen and removed and the rectum. There was also a 8mm polyp seen in the rectal sigmoid colon that was r emoved by hot snare. Biopsies pending. No evidence of source of bleeding. Will advance diet. We will inform patient of the pathology findings-patient does not need to make a follow-up outpatient visit. We will sign off; thank you very much.
--- NOTE | 2019-03-29 09:37 | Anesthesia Evaluation Post Op ---
Date of Encounter: 03/29/19 Time of Encounter: 09:37 - Vital Signs Vital Signs: See anesthesia record - Airway Airway: Non-obstructed - Cardiovascular Regular Rate - Mental Status Mental Status: Alert & Oriented, Answers Appropriately - Pain Pain Scale: 0 - Nausea Vomiting Nausea Vomiting: Not Present - Hydration Hydration: NPO - Discharge PostOp Status: Transfer Patient to floor
[2019-03-29] MEDS ORDERED: Naloxone 0.4 MG/ML INJ IVP PRN (09:42)
[2019-03-29] MEDS ORDERED: Loratadine 10 MG TABLET PO PRN (09:42)
--- NOTE | 2019-03-29 10:44 | Discharge Summary ---
- NOTES TO OUTPATIENT PROVIDER Notes to Outpatient Provider: PCP within one week. repeat cbc- hgb 10.4 on dc (hgb 7 on admit and got [address] Hauser will contact pt with egd bx results. Defer further anemia work up to outpt setting. Orders not resulted at time of discharge: Pending orders 03/29/19 08:57 H. 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 Baca is a 73 year old female with pmhx GCA on daily steroids and ICA aneurysm s/p stent on asa + plavix who has had worsening anemia since ICA stent surgery In January and presented after PCP hgb check was low 7.0s. Hgb on admit 7 with some intermittent lightheadedness at home and intermittent mild abd discomfort but no overt bleeding or melena. She received units 2 prbc with appropriate response and hgb that continued to uptrend throughout stay. Surgery followed her and preformed cscope and egd 03/29. egd showed z line, esophagus, stomach fundus and antrum abnormal tissue all of which was biopsied. cscope showed moderate sized non bleeding internal hemorrhoids, 4 polyps were removed. She does not need ot follow up with dr Hauser, he will call her with bx results. Diet may be regular. Continue home medications. follow up with pcp upon dc for further anemia monitoring/work up. discharged to home in stable condition. Discharge discussed with: patient, nurse - Time Spent with Patient Total time spent providing and/or coordinating discharge services: Time spent: Less than 30 minutes (25 min) - Discharge Medications Prescriptions: Continued Alendronate Sodium 70 mg PO MO Aspirin [Adult Aspirin Regimen] 81 mg PO DAILY Cetirizine HCl [24Hour Allergy] 10 mg PO DAILY PRN PRN Reason: Allergy Symptoms Clopidogrel [Plavix] 75 mg PO DAILY Multivit-Min/Iron/Folic/Lutein [Multivitamin Women 50 Plus Tab] 1 tab PO DAILY Pantoprazole Sodium [Protonix] 40 mg PO DAILY predniSONE [PredniSONE] 15 mg PO DAILY Home Medications: Alendronate Sodium 70 mg PO MO 03/27/19 [History] Aspirin [Adult Aspirin Regimen] 81 mg PO DAILY 03/27/19 [History] Cetirizine HCl [24Hour Allergy] 10 mg PO DAILY PRN 03/27/19 [History] Clopidogrel [Plavix] 75 mg PO DAILY 03/27/19 [History] Multivit-Min/Iron/Folic/Lutein [Multivitamin Women 50 Plus Tab] 1 tab PO DAILY 03/27/19 [History] Pantoprazole Sodium [Protonix] 40 mg PO DAILY 03/27/19 [History] predniSONE [PredniSONE] 15 mg PO DAILY 03/27/19 [History] Allergies/Adverse Reactions: Allergy/AdvReac Type Severity Reaction Status Date / Time acetaminophen [From Percocet] Allergy NAUSEA, Verified 03/27/19 13:35 BAD HEADACHE codeine Allergy NAUSEA, Verified 03/27/19 13:35 BAD HEADACHE oxycodone [From Percocet] Allergy NAUSEA, Verified 03/27/19 13:35 BAD HEADACHE Sulfa (Sulfonamide Allergy See Verified 03/27/19 13:35 Antibiotics) Comments Date of admission: 03/27/19 15:59 Primary care physician: Gema Guajardo CNP Consults: 03/27/19 13:07 Consult to Surgery [CONS] Stat Consulting Provider: Acute Care Surgery Reason for Consult: [id number] Call Completed: Yes 03/27/19 20:24 Consult to Pastoral Services [CONS] Routine Comment: Discharging clinician: Otilia Hawkins - Constitutional Vitals: Temp Pulse Resp BP Pulse Ox 97.5 F L 64 16 120/71 98 03/29/19 10:05 03/29/19 10:05 03/29/19 10:05 03/29/19 10:05 03/29/19 10:05 Exam: awake, back from scopes, rn at bedside. no cp, pressure, sob or fatigue. energy feels improved after prbcs on admit. no abd pain, n/v. discussed dc plan in detail and answered all questions. gen- alert, awake,appears stated age eyes- no conjunctival pallor cv- reg rate and rhythm, normal s1,s2, no le edema lungs- ctabl, normal resp effort on room air abd- soft, non tender, non distended, + bs neuro- AAOx3 skin- warm dry no pallor - Patient Status Disposition: Home, Self-Care Condition: Good Overall status at discharge: patient is back to baseline - Discharge Instructions Follow Up With: Gema Guajardo CNP [Primary Care Provider] - Additional Instructions: Hemoglobin on admission 7. hemoglobin on discharge 10.4 You received 2 units of packed red blood cells this admission and blood count responded appropriately and continued to increase throughout stay. Dr Hauser preformed an EGD and colonscopy 03/29/19 and did not identify any active bleeding. He saw abnormal mucosa (tissue) in your esophagus and stomach and took biopsies of this area. He removed 4 polyps and saw non bleeding moderate sized internal hemorrhoids. He will contact you with biopsy results (these typically take about ten days to result). Follow up with your primary care doctor for further monitoring and work up of anemia outpatient. You may continue all your home medications. - Diet and Activity Activity: increase activity as tolerated Diet: advance to your usual diet
[2019-03-29] MEDS ORDERED: Aspirin Enteric Coated 81 MG Tablet PO SCH (10:50)
[2019-03-29] MEDS ORDERED: Multivit/Ca/Min/Fe/FA 1 TAB TABLET PO SCH (10:53)
[2019-03-29] MEDS ORDERED: predniSONE 10 MG TABLET PO SCH (11:00)
[2019-03-29 14:53] VITALS: BP 137/74
[2019-03-29] MEDS ORDERED: Pantoprazole 40 MG VIAL IVP SCH (18:00)
[2019-03-30] MEDS ORDERED: Multivit/Ca/Min/Fe/FA 1 TAB TABLET PO SCH (09:00)
[2019-03-30] MEDS ORDERED: Aspirin Enteric Coated 81 MG Tablet PO SCH (09:00)
[2019-03-30] MEDS ORDERED: predniSONE 10 MG TABLET PO SCH (09:00)
[2019-03-30] MEDS ORDERED: NON-FORMULARY MEDICATION 1 EACH EACH (Alendronate Sodium 70 MG) PO SCH (16:41)
== END 2019-03-29 15:41 | disposition home or self-care (01) ==
LOC: EMEROOARM 10:13 → 3ANU 10:13 → SUATTDRO 15:59 → 3ANU 16:24
PROVIDERS: ADMIT Internal Medicine Nephrology; ATTEND Internal Medicine
PROC: ENDOEBX (2019-03-29 09:00)